=== PATIENT | male | born 1950 | race African-American/Black ===

== ENCOUNTER 2017-03-22 12:37 | Observation (INO) | payer MEDICARE, SELFPAY ==
[2017-03-22 13:32] LABS: PTT 30.5 SEC (22.9-36.1); Prothrombin Time 13.4 SEC (12.0-14.7)
[2017-03-22 13:34] LABS: #Eosinphils 0.2 thou/uL (0.0-0.7); #Lymphocytes 2.1 thou/uL (1.20-3.40); #Monocytes 0.6 thou/uL (0.11-0.59); #Neutrophils 3.4 thou/uL (1.40-6.50); %Basophils 0.6 % (0.0-1.0); %Eosinophils 2.6 % (0.0-10.0); %Lymphocytes 33.9 % (21.0-51.0); %Monocytes 9.6 % (0.0-10.0); Hematocrit 50.2 % (42.0-52.0); Red Blood Cell (RBC) Count 6.61 mill/uL (4.70-6.10); White Blood Cell (WBC) Count 6.3 thou/uL (4.8-10.8)
[2017-03-22] MEDS ORDERED: Nitroglycerin 2% Ointment 1 INCH/1 GM Packet ONE (13:36)
[2017-03-22 13:51] LABS: Troponin I 0.028 ng/mL (< 0.028)
[2017-03-22 13:53] LABS: ALT (SGPT) 26 U/L (8-55); AST (SGOT) 31 U/L (5-34); Alkaline Phosphatase 71 U/L (40-150); Anion Gap 11 mmol/L (10-20); BUN (Urea Nitrogen) 18 mg/dL (8.4-25.7); Bilirubin, Total 0.8 mg/dL (0.2-1.2); CK (CPK) 399 U/L (30-200); Calc. Creatinine Clearance 0 mL/min (70-130); Calcium 9.5 mg/dL (7.8-10.44); Carbon Dioxide 28 mmol/L (23-31); Chloride 104 mmol/L (98-107); Estimated GFR-MDRD 85; Globulin 3.8 g/dL (2.4-3.5); Lipase 16 U/L (8-78); Protein, Total 8.1 g/dL (5.8-8.1)
[2017-03-22 13:59] LABS: Anisocytosis SLIGHT = 6-15 cells (100X) (0-5/hpf); Elliptocytes SLIGHT = 2-5 cells (100X) (0-1/hpf); Hypochromia SLIGHT = 6-15 cells (100X) (0-5/hpf); Microcytosis SLIGHT = 6-15 cells (100X) (0-5/hpf); Ovalocytes SLIGHT = 2-5 cells (100X) (0-1/hpf); Target Cells SLIGHT = 2-5 cells (100X) (0-1/hpf)
[2017-03-22] MEDS ORDERED: hydrALAZINE 20 MG/ML VIAL ONE ×2 (14:02→15:17)
--- NOTE | 2017-03-22 14:52 | RAD ---
SINGLE VIEW OF THE CHEST: Date: 03-22-17 Comparison: 10-30-12 History: Headache for one week. Blurry vision. FINDINGS: Single view of the chest shows an enlarged cardiomediastinal silhouette. There is no evidence of cons olidation, mass, or pleural effusions. IMPRESSION: Cardiomegaly without evidence of acute cardiopulmonary disease. POS: [facility]
--- NOTE | 2017-03-22 15:02 | CT ---
CT BRAIN WITHOUT CONTRAST: Comparison: 10-10-11 History: Headache for one week and blurry vision. Technique: Multiple contiguous axial images were obtained in a CT of the brain without contrast. FINDINGS: There are scattered hypodensities in the subcortical and periventricular white matter, likely seconda ry to small vessel ischemic disease. A cavum septum pellucidum is incidentally seen. There is no evid ence of hydrocephalus, intracranial hemorrhage or extraaxial fluid collection. The calvarium and overlying soft tissues are unremarkable. The visualized paranasal sinuses and masto id air cells are well aerated. IMPRESSION: Small vessel ischemic disease without acute intracranial abnormality. POS: [facility]
[2017-03-22 15:11] LABS: Bilirubin Negative (Negative); Blood, Urine Negative (Negative); Glucose, Urine (Dipstick) Negative (Negative); Ketone, Urine Negative (Negative); Nitrite Positive (Negative); Protein, Urine (Dipstick) Negative (Neg-Trace)
[2017-03-22] MEDS ORDERED: Ketorolac Tromethamine 30 MG/ML VIAL ONE (15:16)
[2017-03-22] MEDS ORDERED: diphenhydrAMINE 50 MG/ML VIAL ONE (15:16)
[2017-03-22] MEDS ORDERED: Metoclopramide HCl 10 MG/2 ML VIAL ONE (15:17)
--- NOTE | 2017-03-22 15:17 | CT ---
CT ABDOMEN AND PELVIS WITH CONTRAST: Comparison: None. History: Severe abdominal pain. Technique: Multiple contiguous axial images were obtained in a CT of the abdomen and pelvis with cont rast. Coronal reformats were performed. FINDINGS: There is streak artifact limiting evaluation. The liver, gallbladder, adrenal glands, kidneys, spleen , and pancreas are unremarkable. No free air, free fluid, or stranding changes are seen in the abdome n or pelvis. There are few scattered diverticula in the colon. The small bowel is unremarkable. No abdominal or pe lvic lymphadenopathy are seen. Degenerative changes are seen in the spine. Visualized inferior thorax and abdominal wall soft tissue s are unremarkable. IMPRESSION: 1. No evidence of acute intraabdominal/pelvic abnormality. 2. Diverticulosis. POS: [facility]
[2017-03-22 15:22] LABS: Bacteria/HPF 4+ HPF (None Seen); Hyaline Casts/LPF 0-3 HYALINE CAST LPF (0-3 Hyaline); RBC/HPF 0-3 HPF (0-3); Squamous Epithelial None Seen HPF (0-3)
[2017-03-22] MEDS ORDERED: Labetalol HCl 100 MG/20 ML VIAL ONE (17:15)
[2017-03-22] MEDS ORDERED: cefTRIAXone\\ROCEPHIN 2 GM in Sodium Chloride 0.9% 100 ML IVPB ONE (17:15)
[2017-03-22] MEDS ORDERED: Sodium Chloride 0.9% 1,000 ML IV SCH (19:47)
[2017-03-22] MEDS ORDERED: Ondansetron HCl/PF 4 MG/2 ML Vial IVP PRN (19:47)
[2017-03-22] MEDS ORDERED: Acetaminophen 325 MG TAB PO PRN ×2 (19:47→20:01)
[2017-03-22] MEDS ORDERED: Ondansetron ODT 4 MG TAB SL PRN (19:47)
[2017-03-22] MEDS ORDERED: Guaifenesin DM 100-10/5 ML UDCUP PO PRN (20:01)
[2017-03-22 20:04] LABS: Troponin I 0.033 ng/mL (< 0.028)
[2017-03-22] MEDS ORDERED: Dextrose 5% in Water 1,000 ML IV PRN (20:17)
[2017-03-22] MEDS ORDERED: Dextrose 50% Abboject 50 ML SYRINGE SLOW IVP PRN (20:17)
[2017-03-22] MEDS ORDERED: Insulin Regular 300 UNITS/3 ML VIAL SC PRN (20:17)
[2017-03-22] MEDS: Labetalol 100 MG TAB PO SCH (21:57)
[2017-03-22] MEDS: Lisinopril 20 MG TAB PO SCH (21:57)
--- NOTE | 2017-03-23 00:35 | HP ---
DATE OF ADMISSION: 03/22/2017 ADMITTING PHYSICIAN: Dr. Pantera Hamlin. PRIMARY CARE PHYSICIAN: Dr. Bullard. CHIEF COMPLAINT: Lower abdominal pain. HISTORY OF PRESENT ILLNESS: The patient is a 66-year-old gentleman with history of pulmonary hyperte nsion, diabetes, obesity, diastolic heart failure. The patient reports that at about 9:00 a.m. he be jonathon to experience lower abdominal to suprapubic pain. He reports that he ate breakfast about 8:00 a. m. which consist of eggs and sausage and bread product. At about 9:00 a.m. he began to experience th e sharp pain in the suprapubic area. He denies any exacerbating or relieving factors. At approximat kalli 11:00 a.m. he began to experience headaches. He reported to the emergency room for further evalu ation. He denies fevers, chills, injury trauma, nausea, vomiting, diarrhea. REVIEW OF SYSTEMS: The following complete review of systems was negative, unless otherwise mentioned in the HPI or below: Constitutional: Weight loss or gain, sense of well-being, ability to conduct usual activities, exerc ise tolerance. Skin/Breast: Rash, itching, changes in hair growth or loss, nail changes, breast lumps, tenderness, swelling, nipple discharge. Eyes: Vision, double vision, tearing, blind spots, pain. ENT/Mouth: Headaches (location, time of onset, duration, precipitating factors), vertigo, lightheade dness, injury. Vision, double vision, tearing, blind spots, pain, nose bleeding, colds, obstruction, discharge, dental difficulties, gingival bleeding, dentures, neck stiffness, pain, tenderness, masses in thyroid or other areas Cardiovascular: Precordial pain, substernal distress, palpitations, syncope, dyspnea on exertion, or thopnea, nocturnal paroxysmal dyspnea, edema, cyanosis, hypertension, heart murmurs, varicosities, ph lebitis, claudication. Respiratory: Pain, shortness of breath, wheezing, stridor, cough, hemoptysis, fever or night sweats Gastrointestinal: Poor appetite, dysphagia, indigestion, abdominal pain, heartburn, eructation, naus ea, vomiting, hematemesis, jaundice, constipation, or diarrhea, abnormal stools (flip-colored, tarry, bloody, greasy, foul smelling), flatulence, hemorrhoids, recent changes in bowel habits. Genitourinary: Urgency, frequency, dysuria, nocturia, hematuria, polyuria, oliguria, unusual (or nereyda nge in) color of urine, stones, hesitancy, change in size of stream, dribbling, acute retention or in continence, libido, potency. Musculoskeletal: Pain, swelling, redness or heat of muscles or joints, limitation, of motion, muscul ar weakness, atrophy, cramps. Neurologic/Psychiatric: Convulsions, paralyses, tremor, incoordination, parasthesias, difficulties w ith memory of speech, sensory or motor disturbances, or muscular coordination (ataxia, tremor), emoti onal problems, anxiety, depression, previous psychiatric care, unusual perceptions, hallucinations. Allergy/Immunologic: Skin rash, anemia, bleeding tendency, polydipsia, polyuria, intolerance to heat or cold. PAST MEDICAL HISTORY: Significant for coronary artery disease, hypertension, pulmonary artery hypert ension, ischemic brain disease, obesity, diabetes. SURGICAL HISTORY: Abdominal hernia repair, right shoulder surgery, appendectomy. PSYCHIATRIC HISTORY: None. SOCIAL HISTORY: Patient is a former tobacco user. Denies alcohol or drug use. HOME MEDICATIONS: [place] 10 mg q.4 as needed, carvedilol 6.25 mg dose unknown, hydralazine 25 mg t.i. d., Lasix 40 mg once a day. ALLERGIES: No known drug allergies. PHYSICAL EXAMINATION: VITAL SIGNS: Vital statistics shows temperature of 97.7, blood pressure 147/98, pulse 81, respiratio ns 19, satting 97% on 2 liters. GENERAL: He is in no acute distress, cooperative. HEENT: Normocephalic, atraumatic. NECK: Normal range of motion. Trachea midline. No meningeal signs. No cervical adenopathy. No te nderness. RESPIRATORY: No rhonchi, no wheezing. Clear to auscultation. CARDIOVASCULAR: Regular rate and rhythm. Normal S1, S2. ABDOMEN: Morbidly obese. Positive bowel sounds. Tenderness in left lower quadrant suprapubic area. No peritoneal signs, no rebound, no guarding. EXTREMITIES: No clubbing, cyanosis. There is 2-3+ edema, left greater than right. NEUROLOGIC: Alert and oriented x3, no focal deficits. SKIN: Warm, dry, normal in color, no rash. LABORATORY AND IMAGES: CT of the abdomen and pelvis showed no evidence of acute intra-abdominal or p elvic abnormality. There is diverticulosis present as well as degenerative changes in the spine. Ur inalysis yellow cloudy, large amount of leukocytes, positive nitrites, white blood cells greater than 50, bacteria 4+. CT of the brain show small vessel ischemic disease without acute intracranial abno rmality. Chest x-ray shows cardiomegaly without evidence of acute cardiopulmonary disease. CBC show s a white count of 6.3, hemoglobin 15.6, hematocrit 50.2, platelets 145. No bands. No left shift. Lipase 16, creatinine kinase 399. CMP shows sodium of 138, potassium 4.6, chloride 104, carbon dioxi de 28, BUN 18, creatinine 1.05, blood glucose 125, calcium 9.5, albumin 4.3, alkaline phosphatase 71, AST 31, ALT 26. Cardiac enzymes show CK-MB of 7.9, troponin I 0.028, PTT 30.5, INR 1.0. ASSESSMENT AND PLAN: 1. Urinary tract infection. 2. Hypertensive urgency. 3. Pulmonary arterial hypertension. 4. Diabetes type 2. PLAN: Patient will be admitted to observation without monitor. He will be treated with p.o. antibio tics. We will also place the patient on his home antihypertensive and diastolic heart failure medica tions. We will monitor his blood pressure and make alterations accordingly. He will be placed on sl iding scale insulin and Accu-Cheks q.a.c. and at bedtime regimen. We will also diurese the patient a nd monitor for signs of hypovolemia.
[2017-03-23 01:11] VITALS: BMI 42.0
[2017-03-23 03:19] VITALS: TEMP 97.7
[2017-03-23 05:58] LABS: Anion Gap 12 mmol/L (10-20); BUN (Urea Nitrogen) 17 mg/dL (8.4-25.7); Calc. Creatinine Clearance 145 mL/min (70-130); Calcium 9.4 mg/dL (7.8-10.44); Carbon Dioxide 23 mmol/L (23-31); Chloride 105 mmol/L (98-107); Estimated GFR-MDRD Greater than 90
[2017-03-23] MEDS ORDERED: Cipro 250 MG TAB PO SCH (06:00)
[2017-03-23 06:21] LABS: #Eosinphils 0.2 thou/uL (0.0-0.7); #Lymphocytes 2.3 thou/uL (1.20-3.40); #Monocytes 0.8 thou/uL (0.11-0.59); #Neutrophils 4.3 thou/uL (1.40-6.50); %Basophils 0.3 % (0.0-1.0); %Eosinophils 2.3 % (0.0-10.0); %Lymphocytes 30.3 % (21.0-51.0); %Monocytes 10.5 % (0.0-10.0); Hematocrit 49.9 % (42.0-52.0); Mean Platelet Volume 10.1 fL (7.4-10.4); Red Blood Cell (RBC) Count 6.58 mill/uL (4.70-6.10); White Blood Cell (WBC) Count 7.5 thou/uL (4.8-10.8)
[2017-03-23] MEDS ORDERED: Carvedilol 6.25 MG TAB PO SCH (08:00)
[2017-03-23] MEDS ORDERED: Aspirin 81 mg Enteric Coated Tablet PO SCH (09:00)
[2017-03-23] MEDS ORDERED: Furosemide 20 MG TAB PO SCH (09:00)
[2017-03-23] MEDS ORDERED: Enoxaparin Sodium 40 MG/0.4 ML SYRINGE SC SCH (09:00)
[2017-03-23] MEDS: Labetalol 100 MG TAB PO SCH (09:27)
[2017-03-23] MEDS: Lisinopril 20 MG TAB PO SCH (09:27)
[2017-03-23 09:31] VITALS: BP 123/66
--- NOTE | 2017-03-23 12:33 | DIS ---
DATE OF ADMISSION: 03/22/2017 DATE OF DISCHARGE: 03/23/2017 PRIMARY DISCHARGE DIAGNOSIS: Accelerated hypertension. SECONDARY DISCHARGE DIAGNOSIS: Urinary tract infection. HOSPITAL COURSE: The patient was admitted and treated with home medications. The patient's blood pr essure was reduced appropriately. The patient's symptoms improved including headache. The patient a lso was noted to have cystitis with suprapubic pain, the patient's symptoms improved with IV ceftriax one. The patient was also started on ciprofloxacin by mouth. The patient remained afebrile without leukocytosis during his hospital stay. Thus, he was deemed stable for discharge with a 5-day regimen of oral antibiotics. The patient was encouraged to avoid high salt and high fat foods, as well as t o avoid drinking caffeinated drinks. CONSULTATIONS: None. PROCEDURES: None. DISCHARGE DISPOSITION: To home. DISCHARGE ACTIVITY: As tolerated. DISCHARGE DIET: Heart healthy. No salt added. DISCHARGE MEDICATIONS: The patient is to resume his home medication per the medication reconciliatio n list. PHYSICAL EXAMINATION: GENERAL: The patient is in no acute distress, nontoxic. HEAD: Normocephalic, atraumatic. EYES: PERRL. Extraocular muscles intact. LUNGS: Clear to auscultation, no wheezing, no rhonchi. CARDIAC: Regular rate and rhythm, no murmurs, regurg, gallops. ABDOMEN: Obese, nontender, positive bowel sounds. EXTREMITIES: No clubbing, cyanosis. There is 2-3+ edema bilaterally. FOLLOWUP: The patient is to follow up with his PCP within 7-10 days. Instructed to follow up in the emergency department for any other untoward events.
== END 2017-03-23 11:13 | disposition home or self-care (01) ==
LOC: ERS 12:37 → 2SW 19:51
PROVIDERS: ADMIT Internal Medicine Addiction Medicine; ATTEND Internal Medicine Addiction Medicine
DX: I50.30 Unspecified diastolic (congestive) heart failure (principal); I11.0 Hypertensive heart disease with heart failure; N39.0 Urinary tract infection, site not specified; I27.0 Primary pulmonary hypertension; E11.9 Type 2 diabetes mellitus without complications; E66.9 Obesity, unspecified; R10.30 Lower abdominal pain, unspecified; I25.10 Atherosclerotic heart disease of native coronary artery without angina pectoris; Z68.41 Body mass index [BMI] 40.0-44.9, adult; Z79.899 Other long term (current) drug therapy; Z90.49 Acquired absence of other specified parts of digestive tract; Z98.890 Other specified postprocedural states; Z87.891 Personal history of nicotine dependence
CPT/HCPCS: 70450; 71010; 74177; 80048; 80053; 82550; 82553; 82962; 83690; 84484 ×2; 85025 ×2; 85610; 85730; 87077; 87086; 87186; 93005; 94760; 96361; 96365; 96375; 96376; 99285; G0378; 36415; 36416; 81003; 81015; J0360; J0696; J1200; J1650; J1885; J2765; J7050

== ENCOUNTER 2017-05-15 15:23 | Emergency (ER) | payer MEDICARE ==
[~2017-05-15 15:23] MED LIST: ISOVUE-370 76%-LOCM 1 ML ONE
[2017-05-15 16:19] LABS: Mean Corpuscular HGB CONC 31.3 g/dL (32.0-36.0); Mean Corpuscular Hemoglobin 23.2 pg (27.0-31.0); Mean Corpuscular Volume 74.3 fl (80.0-94.0); Mean Platelet Volume 9.7 fL (7.4-10.4); Platelet Count 154 thou/uL (130-400); Red Blood Cell (RBC) Count 6.47 mill/uL (4.70-6.10); White Blood Cell (WBC) Count 6.9 thou/uL (4.8-10.8)
--- NOTE | 2017-05-15 16:36 | RAD ---
CHEST ONE VIEW: History: 67-year-old male with nausea and vomiting and abdominal pain which began approximately 2 hours ago. Comparison: 03-22-17 FINDINGS: Heart size is within normal limits. Atherosclerotic ectatic changes of the aorta. Horizontal linear a nd parenchymal changes noted in both bases, overall stable from prior studies. No overt edema, conflu ent pneumonia, or other acute process. IMPRESSION: Stable horizontal linear and parenchymal changes in the bases. Atherosclerosis of the aorta with ecta lenny. No acute intrathoracic disease. POS: [facility]
[2017-05-15 16:40] LABS: #Basophils 0.1 thou/uL (0.0-0.2); #Eosinphils 0.1 thou/uL (0.0-0.7); #Lymphocytes 2.3 thou/uL (1.20-3.40); #Monocytes 0.7 thou/uL (0.11-0.59); #Neutrophils 3.6 thou/uL (1.40-6.50); %Basophils 1.1 % (0.0-1.0); %Eosinophils 2.1 % (0.0-10.0); %Lymphocytes 33.6 % (21.0-51.0); %Monocytes 10.4 % (0.0-10.0); %Neutrophils 52.8 % (42.0-75.0); Anisocytosis SLIGHT = 6-15 cells (100X) (0-5/hpf); Hypochromia SLIGHT = 6-15 cells (100X) (0-5/hpf); MDiff Complete? YES; Microcytosis SLIGHT = 6-15 cells (100X) (0-5/hpf); Ovalocytes SLIGHT = 2-5 cells (100X) (0-1/hpf); Target Cells SLIGHT = 2-5 cells (100X) (0-1/hpf)
[2017-05-15 16:42] LABS: Troponin I 0.037 ng/mL (< 0.028)
[2017-05-15 16:46] LABS: ALT (SGPT) 16 U/L (8-55); AST (SGOT) 21 U/L (5-34); Albumin 4.2 g/dL (3.4-4.8); Alkaline Phosphatase 70 U/L (40-150); Anion Gap 12 mmol/L (10-20); BUN (Urea Nitrogen) 18 mg/dL (8.4-25.7); Bilirubin, Total 0.7 mg/dL (0.2-1.2); CK (CPK) 447 U/L (30-200); Calc. Creatinine Clearance 0 mL/min (70-130); Calcium 9.2 mg/dL (7.8-10.44); Carbon Dioxide 28 mmol/L (23-31); Chloride 105 mmol/L (98-107); Estimated GFR-MDRD 65; Glucose 135 mg/dL (80-115); Potassium 4.3 mmol/L (3.5-5.1); Protein, Total 7.2 g/dL (5.8-8.1); Sodium 141 mmol/L (136-145)
[2017-05-15 19:28] LABS: Bilirubin Negative (Negative); Blood, Urine Negative (Negative); Clarity CLEAR (Clear); Glucose, Urine (Dipstick) Negative (Negative); Leukocyte Negative (Negative); Nitrite Negative (Negative); Protein, Urine (Dipstick) Negative (Neg-Trace); Specific Gravity, Urine 1.018 (1.002-1.036); pH, Urine 7.5 (5.0-9.0)
[2017-05-15] MEDS ORDERED: hydrALAZINE 20 MG/ML VIAL ONE (19:44)
--- NOTE | 2017-05-15 20:26 | CT ---
CT ABDOMEN AND PELVIS WITH CONTRAST: Technique: Multiple axial tomograms were obtained through the abdomen and pelvis with IV enhancement. History: Abdominal pain. Comparison: 03-22-17 FINDINGS: Lung bases are clear. The liver, spleen, and pancreas are unremarkable. Stomach and duodenum are unre markable. Adrenal glands and kidneys are unremarkable. No hydronephrosis. Small bowel loops appear normal. Appendix is not identified. The colon is unremarkable. Airway normal caliber. No adenopathy. Images through the pelvis unremarkable. Prostate normal sized. IMPRESSION: No evidence of acute process. POS: [facility]
== END 2017-05-15 20:48 | disposition home or self-care (01) ==
LOC: ERS 15:23
DX: R10.31 Right lower quadrant pain (principal); I10 Essential (primary) hypertension; I11.0 Hypertensive heart disease with heart failure; I50.9 Heart failure, unspecified; Z87.891 Personal history of nicotine dependence; Z79.899 Other long term (current) drug therapy; Z86.73 Personal history of transient ischemic attack (TIA), and cerebral infarction without residual deficits
CPT/HCPCS: 36415; 71045; 74177; 80053; 81003; 82550; 82553; 84484; 85025; 93005; 94760; 96372; 96374; 96375; J0360; J2270

== ENCOUNTER 2017-06-14 14:12 | Emergency (ER) | payer MEDICARE ==
[2017-06-14 15:15] LABS: #Basophils 0.1 thou/uL (0.0-0.2); #Eosinphils 0.1 thou/uL (0.0-0.7); #Lymphocytes 2.2 thou/uL (1.20-3.40); #Monocytes 1.3 thou/uL (0.11-0.59); #Neutrophils 5.4 thou/uL (1.40-6.50); %Lymphocytes 24.3 % (21.0-51.0); %Monocytes 14.1 % (0.0-10.0); %Neutrophils 59.6 % (42.0-75.0); Anisocytosis SLIGHT = 6-15 cells (100X) (0-5/hpf); Elliptocytes SLIGHT = 2-5 cells (100X) (0-1/hpf); Hemoglobin 15.6 g/dL (14.0-18.0); Hypochromia SLIGHT = 6-15 cells (100X) (0-5/hpf); Large Platelets SLIGHT; MDiff Complete? YES; Mean Corpuscular Hemoglobin 23.2 pg (27.0-31.0); Mean Corpuscular Volume 72.6 fl (80.0-94.0); Mean Platelet Volume 11.2 fL (7.4-10.4); Microcytosis SLIGHT = 6-15 cells (100X) (0-5/hpf); Ovalocytes SLIGHT = 2-5 cells (100X) (0-1/hpf); PLT Morphology Comment Appears Adequate; Platelet Count 165 thou/uL (130-400); Polychromasia SLIGHT = 2-3 cells (100X) (0-2/hpf); RBC Distribution Width 15.5 % (11.5-14.5); White Blood Cell (WBC) Count 9.1 thou/uL (4.8-10.8)
[2017-06-14 15:22] LABS: CKMB 6.1 ng/mL (0-6.6); Troponin I 0.025 ng/mL (< 0.028)
[2017-06-14 15:23] LABS: ALT (SGPT) 15 U/L (8-55); AST (SGOT) 20 U/L (5-34); Albumin 4.2 g/dL (3.4-4.8); Alkaline Phosphatase 74 U/L (40-150); Anion Gap 13 mmol/L (10-20); BUN (Urea Nitrogen) 18 mg/dL (8.4-25.7); Bilirubin, Total 0.9 mg/dL (0.2-1.2); CK (CPK) 434 U/L (30-200); Calc. Creatinine Clearance 0 mL/min (70-130); Calcium 9.7 mg/dL (7.8-10.44); Carbon Dioxide 25 mmol/L (23-31); Chloride 101 mmol/L (98-107); Estimated GFR-MDRD 90; Globulin 3.5 g/dL (2.4-3.5); Glucose 110 mg/dL (80-115); Potassium 3.9 mmol/L (3.5-5.1); Protein, Total 7.7 g/dL (5.8-8.1); Sodium 135 mmol/L (136-145)
--- NOTE | 2017-06-14 15:44 | RAD ---
PORTABLE CHEST ONE VIEW: Date: 06-14-17 Time: 2:59 p.m. History: Chest pain. FINDINGS/IMPRESSION: Comparison is made with exam of 05-15-17. The heart is enlarged. The aorta is tortuous. Chronic changes are again seen. No lobar consolidation, pneumothoraces, alana pulmonary edema or pleural effusions are identified. POS: [facility]
--- NOTE | 2017-06-14 15:54 | ULT ---
BILATERAL LOWER EXTREMITY VENOUS DUPLEX EXAM: 06/14/17 Deep veins of both lower extremities evaluated by ultrasound and doppler. Color doppler with spectral analysis and compression studies performed. INDICATIONS: Bilateral lower extremity pain and edema. Deep veins of both lower extremities show normal blood flow and compression. No evidence of DVT. IMPRESSION: No evidence of lower extremity DVT. POS: [facility]
[2017-06-14] MEDS ORDERED: HYDROcodone/Acetaminophen 5/325 mg Tablet ONE (17:09)
--- NOTE | 2017-06-17 15:57 | EKG ---
Test Reason : Blood Pressure : / mmHG Vent. Rate : 083 BPM Atrial Rate : 332 BPM P-R Int : 000 ms QRS Dur : 138 ms QT Int : 390 ms P-R-T Axes : 270 -68 079 degrees QTc Int : 458 ms Atrial flutter with 4:1 A-V conduction Right bundle branch block Left anterior fascicular block Bifascicular block Inferior infarct , age undetermined Cannot rule out Anterior infarct , age undetermined Abnormal ECG Confirmed by ROSALINE AU, SVEN ([id number]), film editor TAO TATUM ([id number]) on 06/17/2017 3:56:29 PM Referred By: Confirmed By:SVEN WAGGONER MD
== END 2017-06-14 17:17 | disposition home or self-care (01) ==
LOC: ERS 14:12
DX: R60.0 Localized edema (principal); I25.2 Old myocardial infarction; I11.0 Hypertensive heart disease with heart failure; I67.1 Cerebral aneurysm, nonruptured; I50.9 Heart failure, unspecified; Z87.891 Personal history of nicotine dependence; Z86.73 Personal history of transient ischemic attack (TIA), and cerebral infarction without residual deficits; Z79.899 Other long term (current) drug therapy
CPT/HCPCS: 36415; 71045; 80053; 82553; 83880; 84484; 85025; 93005; 93970

== ENCOUNTER 2024-03-17 18:52 | Inpatient (IN) | payer MEDICARE ==
[2024-03-17] MEDS ORDERED: Bisacodyl 5 MG TAB PO PRN (21:11)
[2024-03-17] MEDS ORDERED: Ondansetron ODT 4 MG TAB PO PRN (21:11)
[2024-03-17] MEDS ORDERED: Ondansetron PF 4 MG/2 ML Vial IVP PRN (21:11)
[2024-03-17] MEDS ORDERED: traMADol HCl 50 MG TAB PO PRN (21:11)
[2024-03-17] MEDS ORDERED: Acetaminophen 325 MG TAB PO PRN (21:11)
[2024-03-17] MEDS ORDERED: Dextrose 50% Abboject 50 ML SYRINGE SLOW IVP PRN (21:20)
[2024-03-17] MEDS ORDERED: Glucagon 1 MG/ML KIT IM PRN (21:20)
[2024-03-17] MEDS ORDERED: Dextrose 5% in Water 1,000 ML IV PRN (21:20)
[2024-03-17 21:27] VITALS: BMI 39.0
[2024-03-17] MEDS: methylPREDNISolone Sod Succ 40 MG VIAL IVP SCH (21:37)
[2024-03-17] MEDS: Doxycycline 100 MG in Sodium Chloride 0.9% 100 ML IVPB SCH (21:37)
[2024-03-17 22:09] LABS: Bacteria/HPF None Seen HPF (None Seen); Bilirubin Negative (Negative); Blood, Urine Negative (Negative); Clarity Clear (Clear); Glucose, Urine (Dipstick) Normal (Negative); Ketone, Urine Negative (Negative); Leukocyte Negative Leu/uL (Negative); Nitrite Negative (Negative); Protein, Urine (Dipstick) 100 mg/dL (Neg-Trace); RBC/HPF 0-3 HPF (0-3); Specific Gravity, Urine 1.006 (1.002-1.036); Squamous Epithelial None Seen HPF (0-3); Urobilinogen 3 mg/dL (Less than 2); WBC/HPF 0-3 HPF (0-3)
[2024-03-17 22:41] LABS: Magnesium 1.9 mg/dL (1.6-2.6)
[2024-03-17 23:45] LABS: Troponin I 0.059 ng/mL (< 0.028)
[2024-03-18] MEDS: Ipratropium/Albuterol 3 ML NEB NEB SCH (01:50)
[2024-03-18 05:06] LABS: Troponin I 0.051 ng/mL (< 0.028)
[2024-03-18] MEDS: Furosemide 40 MG (4 mL) VIAL SLOW IVP SCH (05:18)
[2024-03-18] MEDS: Cefepime 1 GM in Sodium Chloride 0.9% 100 ML IVPB SCH (09:16)
[2024-03-18] MEDS: Empagliflozin 10 MG TAB PO SCH (09:16)
[2024-03-18] MEDS: Amitriptyline HCl 25 MG TAB PO SCH (09:16)
[2024-03-18] MEDS: Ferrous Sulfate 325 MG TAB PO SCH (09:16)
[2024-03-18] MEDS: Famotidine 20 MG TAB PO SCH (09:16)
[2024-03-18] MEDS: Arformoterol 15 MCG/2 ML NEB NEB SCH (09:21)
[2024-03-18 10:26] LABS: #Basophils Less than 0.03 10x3/uL (0.0-0.2); #Eosinophils Less than 0.03 10x3/uL (0.0-0.7); %Lymphocytes 11.9 % (21.0-51.0); %Monocytes 5.4 % (0.0-10.0); %Neutrophils 82.5 % (42.0-75.0); Hematocrit 34.3 % (42.0-52.0); Hemoglobin 10.4 g/dL (14.0-18.0); Mean Corpuscular HGB CONC 30.3 g/dL (32.0-36.0); Mean Corpuscular Hemoglobin 22.2 pg (27.0-31.0); Mean Corpuscular Volume 73.3 fL (78.0-98.0); Platelet Count 343 10x3/uL (130-400); RBC Distribution Width 18.9 % (11.5-14.5); Red Blood Cell (RBC) Count 4.68 mill/uL (4.70-6.10)
[2024-03-18 10:41] LABS: Anion Gap 14 mmol/L (10-20); BUN (Urea Nitrogen) 31 mg/dL (8.4-25.7); Calc. Creatinine Clearance 83 mL/min (70-130); Calcium 8.7 mg/dL (7.8-10.44); Carbon Dioxide 27 mmol/L (23-31); Chloride 106 mmol/L (98-107); Estimated GFR 55; Glucose 194 mg/dL (83-110); Potassium 4.4 mmol/L (3.5-5.1); Sodium 143 mmol/L (136-145)
[2024-03-18] MEDS: Heparin 5,000 UNITS/ML VIAL SC SCH (11:06)
[2024-03-18 11:11] LABS: Anisocytosis MODERATE=16-30 cells HPF (0-5); Burr Cells MODERATE= 6-15 cells HPF (0-1); Elliptocytes MODERATE= 6-15 cells HPF (0-1); Hypochromia SLIGHT = 6-15 cells HPF (0-5); Microcytosis SLIGHT = 6-15 cells HPF (0-5); Ovalocytes SLIGHT = 2-5 cells HPF (0-1); Platelet Adequacy Comment Platelets Normal; Poikilocytosis MARKED = >30 cells HPF (0-5); Polychromasia SLIGHT = 2-3 cells HPF (0-2); Reflex for Review?? YES; Schistocytes MODERATE= 6-15 cells HPF (0-1); Target Cells SLIGHT = 2-5 cells HPF (0-1)
[2024-03-19] MEDS: HYDROcodone/Acetaminophen 10/325 mg Tablet PO PRN (08:58)
[2024-03-19 09:42] LABS: #Basophils Less than 0.03 10x3/uL (0.0-0.2); #Eosinophils Less than 0.03 10x3/uL (0.0-0.7); %Basophils 0.1 % (0.0-1.0); %Lymphocytes 7.1 % (21.0-51.0); %Monocytes 15.2 % (0.0-10.0); %Neutrophils 77.2 % (42.0-75.0); Hematocrit 34.4 % (42.0-52.0); Hemoglobin 10.6 g/dL (14.0-18.0); Mean Corpuscular HGB CONC 30.8 g/dL (32.0-36.0); Mean Corpuscular Hemoglobin 22.5 pg (27.0-31.0); Mean Corpuscular Volume 72.9 fL (78.0-98.0); Platelet Count 363 10x3/uL (130-400); Red Blood Cell (RBC) Count 4.72 mill/uL (4.70-6.10)
[2024-03-19 10:12] LABS: Anion Gap 14 mmol/L (10-20); BUN (Urea Nitrogen) 37 mg/dL (8.4-25.7); Calc. Creatinine Clearance 73 mL/min (70-130); Calcium 8.7 mg/dL (7.8-10.44); Carbon Dioxide 27 mmol/L (23-31); Chloride 104 mmol/L (98-107); Estimated GFR 47; Glucose 135 mg/dL (83-110); Potassium 4.3 mmol/L (3.5-5.1); Sodium 141 mmol/L (136-145)
[2024-03-19 10:14] LABS: Band 2 % (5-11); Elliptocytes MODERATE= 6-15 cells HPF (0-1); Large Platelets 12.7 % (0-5); Lymphocytes 4 % (21-51); Microcytosis SLIGHT = 6-15 cells HPF (0-5); Monocytes 12 % (0-10); Myelocyte 1 % (0-0); Neutrophil 80 % (42-75); Platelet Adequacy Comment Platelets Normal; Polychromasia SLIGHT = 2-3 cells HPF (0-2); Schistocytes MODERATE= 6-15 cells HPF (0-1)
[2024-03-20 05:38] LABS: Anion Gap 16 mmol/L (10-20); BUN (Urea Nitrogen) 41 mg/dL (8.4-25.7); Calc. Creatinine Clearance 68 mL/min (70-130); Carbon Dioxide 25 mmol/L (23-31); Chloride 104 mmol/L (98-107); Estimated GFR 43; Glucose 165 mg/dL (83-110); Magnesium 1.9 mg/dL (1.6-2.6); Potassium 4.7 mmol/L (3.5-5.1); Sodium 140 mmol/L (136-145)
[2024-03-20 05:46] LABS: #Basophils Less than 0.03 10x3/uL (0.0-0.2); #Eosinophils Less than 0.03 10x3/uL (0.0-0.7); %Basophils 0.1 % (0.0-1.0); %Lymphocytes 4.3 % (21.0-51.0); %Monocytes 9.9 % (0.0-10.0); %Neutrophils 85.3 % (42.0-75.0); Hematocrit 34.8 % (42.0-52.0); Hemoglobin 10.8 g/dL (14.0-18.0); Mean Corpuscular Hemoglobin 22.4 pg (27.0-31.0); Mean Corpuscular Volume 72.2 fL (78.0-98.0); Platelet Count 386 10x3/uL (130-400); RBC Distribution Width 19.3 % (11.5-14.5); Red Blood Cell (RBC) Count 4.82 mill/uL (4.70-6.10)
[2024-03-20 06:40] LABS: Elliptocytes MODERATE= 6-15 cells HPF (0-1); Microcytosis MODERATE=15-30 cells HPF (0-5); Platelet Adequacy Comment Platelets Decreased; Polychromasia SLIGHT = 2-3 cells HPF (0-2); Schistocytes SLIGHT = 2-5 cells HPF (0-1)
[2024-03-21 07:00] LABS: #Basophils Less than 0.03 10x3/uL (0.0-0.2); #Eosinophils Less than 0.03 10x3/uL (0.0-0.7); %Lymphocytes 6.3 % (21.0-51.0); %Monocytes 14.3 % (0.0-10.0); %Neutrophils 79.1 % (42.0-75.0); Hemoglobin 11.2 g/dL (14.0-18.0); Mean Corpuscular HGB CONC 31.1 g/dL (32.0-36.0); Mean Corpuscular Hemoglobin 22.6 pg (27.0-31.0); Mean Corpuscular Volume 72.7 fL (78.0-98.0); Platelet Count 358 10x3/uL (130-400); RBC Distribution Width 19.6 % (11.5-14.5); Red Blood Cell (RBC) Count 4.95 mill/uL (4.70-6.10)
[2024-03-21 07:09] LABS: Anion Gap 15 mmol/L (10-20); BUN (Urea Nitrogen) 50 mg/dL (8.4-25.7); Calc. Creatinine Clearance 72 mL/min (70-130); Calcium 9.5 mg/dL (7.8-10.44); Carbon Dioxide 25 mmol/L (23-31); Chloride 106 mmol/L (98-107); Estimated GFR 45; Glucose 136 mg/dL (83-110); Potassium 4.7 mmol/L (3.5-5.1); Sodium 141 mmol/L (136-145)
[2024-03-21] MEDS: Carvedilol 25 MG TAB PO SCH (09:50)
[2024-03-21] MEDS: Atorvastatin Calcium 40 MG TAB PO SCH (09:56)
[2024-03-21] MEDS: Milrinone Lactate/D5W 20 MG in Premix 1 BAG IV SCH (18:10)
[2024-03-22 04:14] LABS: #Basophils Less than 0.03 10x3/uL (0.0-0.2); #Eosinophils Less than 0.03 10x3/uL (0.0-0.7); %Lymphocytes 7.7 % (21.0-51.0); %Monocytes 8.2 % (0.0-10.0); %Neutrophils 83.6 % (42.0-75.0); Hemoglobin 10.6 g/dL (14.0-18.0); Mean Corpuscular HGB CONC 31.2 g/dL (32.0-36.0); Mean Corpuscular Hemoglobin 22.3 pg (27.0-31.0); Mean Corpuscular Volume 71.4 fL (78.0-98.0); Platelet Count 334 10x3/uL (130-400); RBC Distribution Width 19.3 % (11.5-14.5); Red Blood Cell (RBC) Count 4.76 mill/uL (4.70-6.10)
[2024-03-22 04:24] LABS: Anion Gap 16 mmol/L (10-20); BUN (Urea Nitrogen) 52 mg/dL (8.4-25.7); Calc. Creatinine Clearance 72 mL/min (70-130); Calcium 8.9 mg/dL (7.8-10.44); Carbon Dioxide 25 mmol/L (23-31); Chloride 104 mmol/L (98-107); Estimated GFR 46; Glucose 158 mg/dL (83-110); Potassium 4.9 mmol/L (3.5-5.1); Sodium 140 mmol/L (136-145)
[2024-03-22 04:39] LABS: Anisocytosis MARKED = >30 cells HPF (0-5); Burr Cells SLIGHT = 2-5 cells HPF (0-1); Elliptocytes MODERATE= 6-15 cells HPF (0-1); Macrocytosis MODERATE=16-30 cells HPF (0-5); Ovalocytes SLIGHT = 2-5 cells HPF (0-1); Platelet Adequacy Comment Platelets Normal; Poikilocytosis SLIGHT = 6-15 cells HPF (0-5); Polychromasia SLIGHT = 2-3 cells HPF (0-2); Schistocytes SLIGHT = 2-5 cells HPF (0-1)
[2024-03-22] MEDS: Furosemide 20 MG TAB PO SCH (09:57)
[2024-03-22] MEDS: methylPREDNISolone Sod Succ 40 MG VIAL IVP SCH (12:27)
[2024-03-23 04:46] LABS: #Basophils Less than 0.03 10x3/uL (0.0-0.2); #Eosinophils Less than 0.03 10x3/uL (0.0-0.7); %Lymphocytes 11.7 % (21.0-51.0); %Monocytes 19.8 % (0.0-10.0); Hematocrit 31.5 % (42.0-52.0); Hemoglobin 9.9 g/dL (14.0-18.0); Mean Corpuscular HGB CONC 31.4 g/dL (32.0-36.0); Mean Corpuscular Hemoglobin 22.6 pg (27.0-31.0); Mean Corpuscular Volume 71.8 fL (78.0-98.0); Platelet Count 303 10x3/uL (130-400); RBC Distribution Width 19.2 % (11.5-14.5); Red Blood Cell (RBC) Count 4.39 mill/uL (4.70-6.10)
[2024-03-23 04:53] LABS: Anion Gap 14 mmol/L (10-20); BUN (Urea Nitrogen) 50 mg/dL (8.4-25.7); Calc. Creatinine Clearance 77 mL/min (70-130); Calcium 8.6 mg/dL (7.8-10.44); Carbon Dioxide 26 mmol/L (23-31); Chloride 104 mmol/L (98-107); Estimated GFR 49; Glucose 126 mg/dL (83-110); Potassium 4.7 mmol/L (3.5-5.1); Sodium 139 mmol/L (136-145)
[2024-03-23 05:24] LABS: Anisocytosis SLIGHT = 6-15 cells HPF (0-5); Elliptocytes MODERATE= 6-15 cells HPF (0-1); Hypochromia SLIGHT = 6-15 cells HPF (0-5); Microcytosis SLIGHT = 6-15 cells HPF (0-5); Platelet Adequacy Comment Platelets Normal; Poikilocytosis MARKED = >30 cells HPF (0-5); Polychromasia SLIGHT = 2-3 cells HPF (0-2); Schistocytes SLIGHT = 2-5 cells HPF (0-1); Tear Drops SLIGHT = 2-5 cells HPF (0-1)
[2024-03-23] MEDS: Furosemide 40 MG (4 mL) VIAL SLOW IVP SCH (08:57)
[2024-03-23] MEDS: methylPREDNISolone Sod Succ 40 MG VIAL IVP SCH (08:58)
[2024-03-23] MEDS: Bumetanide 1 MG/4 ML VIAL IVP SCH (21:00)
[2024-03-24 04:56] LABS: Anion Gap 16 mmol/L (10-20); BUN (Urea Nitrogen) 48 mg/dL (8.4-25.7); Calc. Creatinine Clearance 78 mL/min (70-130); Calcium 8.8 mg/dL (7.8-10.44); Carbon Dioxide 25 mmol/L (23-31); Chloride 104 mmol/L (98-107); Estimated GFR 50; Glucose 104 mg/dL (83-110); Potassium 4.5 mmol/L (3.5-5.1); Sodium 140 mmol/L (136-145)
[2024-03-24 05:10] LABS: Hematocrit 33.2 % (42.0-52.0); Hemoglobin 10.3 g/dL (14.0-18.0); Mean Corpuscular Hemoglobin 22.7 pg (27.0-31.0); Mean Corpuscular Volume 73.1 fL (78.0-98.0); Platelet Count 309 10x3/uL (130-400); RBC Distribution Width 19.5 % (11.5-14.5); Red Blood Cell (RBC) Count 4.54 mill/uL (4.70-6.10)
[2024-03-24] MEDS ORDERED: Furosemide 40 MG (4 mL) VIAL SLOW IVP SCH (06:00)
[2024-03-24] MEDS: Bumetanide 1 MG/4 ML VIAL IVP SCH ×3 (06:51→21:39)
[2024-03-24 07:09] LABS: Magnesium 2.1 mg/dL (1.6-2.6)
[2024-03-24 07:20] LABS: Anisocytosis MARKED = >30 cells HPF (0-5); Band 1 % (5-11); Elliptocytes MODERATE= 6-15 cells HPF (0-1); Hypochromia MODERATE=16-30 cells HPF (0-5); Lymphocytes 19 % (21-51); Macrocytosis MODERATE=16-30 cells HPF (0-5); Monocytes 12 % (0-10); Neutrophil 68 % (42-75); Platelet Adequacy Comment Platelets Normal; Poikilocytosis MODERATE=16-30 cells HPF (0-5); Polychromasia SLIGHT = 2-3 cells HPF (0-2); Schistocytes SLIGHT = 2-5 cells HPF (0-1)
[2024-03-25 04:45] LABS: #Basophils Less than 0.03 10x3/uL (0.0-0.2); #Eosinophils Less than 0.03 10x3/uL (0.0-0.7); %Eosinophils 0.1 % (0.0-10.0); %Lymphocytes 11.4 % (21.0-51.0); %Monocytes 18.1 % (0.0-10.0); %Neutrophils 70.2 % (42.0-75.0); Hematocrit 32.8 % (42.0-52.0); Hemoglobin 10.3 g/dL (14.0-18.0); Mean Corpuscular HGB CONC 31.4 g/dL (32.0-36.0); Mean Corpuscular Hemoglobin 22.4 pg (27.0-31.0); Mean Corpuscular Volume 71.3 fL (78.0-98.0); Platelet Count 287 10x3/uL (130-400); RBC Distribution Width 19.9 % (11.5-14.5)
[2024-03-25 05:05] LABS: Anion Gap 12 mmol/L (10-20); BUN (Urea Nitrogen) 43 mg/dL (8.4-25.7); Calc. Creatinine Clearance 82 mL/min (70-130); Calcium 8.4 mg/dL (7.8-10.44); Carbon Dioxide 35 mmol/L (23-31); Chloride 98 mmol/L (98-107); Estimated GFR 53; Glucose 94 mg/dL (83-110); Potassium 4.2 mmol/L (3.5-5.1); Sodium 141 mmol/L (136-145)
[2024-03-25 05:13] LABS: Anisocytosis SLIGHT = 6-15 cells HPF (0-5); Elliptocytes MODERATE= 6-15 cells HPF (0-1); Microcytosis SLIGHT = 6-15 cells HPF (0-5); Platelet Adequacy Comment Platelets Normal; Poikilocytosis SLIGHT = 6-15 cells HPF (0-5); Schistocytes SLIGHT = 2-5 cells HPF (0-1)
[2024-03-25] MEDS: Insulin Lispro 100 UNIT/ML 10 ML VIAL SC PRN (16:24)
[2024-03-25 16:49] VITALS: BMI 38.2
[2024-03-25] MEDS: Milrinone Lactate/D5W 20 MG in Premix 1 BAG IV SCH (19:49)
[2024-03-25] MEDS: Doxycycline 100 MG CAP PO SCH (20:46)
[2024-03-26 04:18] LABS: Anion Gap 13 mmol/L (10-20); BUN (Urea Nitrogen) 35 mg/dL (8.4-25.7); Calc. Creatinine Clearance 70 mL/min (70-130); Carbon Dioxide 37 mmol/L (23-31); Chloride 94 mmol/L (98-107); Estimated GFR 46; Glucose 115 mg/dL (83-110); Potassium 3.8 mmol/L (3.5-5.1); Sodium 140 mmol/L (136-145)
[2024-03-26 04:43] LABS: #Basophils Less than 0.03 10x3/uL (0.0-0.2); %Basophils 0.1 % (0.0-1.0); %Eosinophils 0.3 % (0.0-10.0); %Lymphocytes 14.1 % (21.0-51.0); %Monocytes 17.5 % (0.0-10.0); %Neutrophils 67.6 % (42.0-75.0); Hematocrit 34.9 % (42.0-52.0); Hemoglobin 10.8 g/dL (14.0-18.0); Mean Corpuscular HGB CONC 30.9 g/dL (32.0-36.0); Mean Corpuscular Hemoglobin 22.7 pg (27.0-31.0); Mean Corpuscular Volume 73.3 fL (78.0-98.0); Platelet Count 231 10x3/uL (130-400); RBC Distribution Width 19.9 % (11.5-14.5); Red Blood Cell (RBC) Count 4.76 mill/uL (4.70-6.10)
[2024-03-26] MEDS: predniSONE 20 MG TAB PO SCH (10:31)
[2024-03-26] MEDS: Insulin Lispro 100 UNIT/ML 10 ML VIAL SC PRN (21:24)
[2024-03-27] MEDS: Bumetanide 1 MG TAB PO SCH (06:32)
[2024-03-27 11:56] VITALS: BP 120/65; TEMP 97.6
[2024-03-27 12:13] LABS: #Basophils Less than 0.03 10x3/uL (0.0-0.2); %Basophils 0.1 % (0.0-1.0); %Eosinophils 0.4 % (0.0-10.0); %Lymphocytes 10.7 % (21.0-51.0); %Monocytes 14.9 % (0.0-10.0); %Neutrophils 73.6 % (42.0-75.0); Hematocrit 40.4 % (42.0-52.0); Hemoglobin 12.4 g/dL (14.0-18.0); Mean Corpuscular HGB CONC 30.7 g/dL (32.0-36.0); Mean Corpuscular Hemoglobin 22.6 pg (27.0-31.0); Mean Corpuscular Volume 73.6 fL (78.0-98.0); Platelet Count 218 10x3/uL (130-400); RBC Distribution Width 20.4 % (11.5-14.5); Red Blood Cell (RBC) Count 5.49 mill/uL (4.70-6.10)
[2024-03-27 12:26] LABS: Anion Gap 16 mmol/L (10-20); BUN (Urea Nitrogen) 32 mg/dL (8.4-25.7); Calc. Creatinine Clearance 65 mL/min (70-130); Calcium 9.7 mg/dL (7.8-10.44); Carbon Dioxide 34 mmol/L (23-31); Chloride 92 mmol/L (98-107); Estimated GFR 46; Glucose 112 mg/dL (83-110); Magnesium 1.8 mg/dL (1.6-2.6); Potassium 4.3 mmol/L (3.5-5.1); Sodium 138 mmol/L (136-145)
== END 2024-03-27 14:10 | disposition home or self-care (01) | DRG 280 ==
LOC: OBS 18:52 → OBSVTOIN 03-18 13:18 → PCU 03-21 18:04
PROVIDERS: ADMIT Internal Medicine; ATTEND Family Medicine
DX: I13.0 Hypertensive heart and chronic kidney disease with heart failure and stage 1 through stage 4 chronic kidney disease, or unspecified chronic kidney disease (principal); I50.33 Acute on chronic diastolic (congestive) heart failure; I21.A1 Myocardial infarction type 2; J96.01 Acute respiratory failure with hypoxia; J44.1 Chronic obstructive pulmonary disease with (acute) exacerbation; N17.9 Acute kidney failure, unspecified; F32.A Depression, unspecified; E78.5 Hyperlipidemia, unspecified; Z79.01 Long term (current) use of anticoagulants; Z79.899 Other long term (current) drug therapy; E66.01 Morbid (severe) obesity due to excess calories; Z68.35 Body mass index [BMI] 35.0-35.9, adult; N18.30 Chronic kidney disease, stage 3 unspecified; E11.22 Type 2 diabetes mellitus with diabetic chronic kidney disease
CPT/HCPCS: 36415; 36416; 71045; 71250; 74176; 80048; 80053; 81001; 83735; 83880; 84145; 84443; 84484; 85025; 85060; 87040; 87070; 87205; 93005; 93010; 93306; 93970; 94640; 96365; 96367; 96374; 96375; 96376; 97139; G0378; J0692; J1644; J1815; J1940; J2260; J2919; J3490; J7512; J7620

== ENCOUNTER 2024-03-29 10:49 | Emergency (ER) | payer MEDICARE ==
[2024-03-29] MEDS ORDERED: HYDROcodone/Acetaminophen 5/325 mg Tablet ONE (14:11)
== END 2024-03-29 14:18 | disposition home or self-care (01) ==
LOC: ERS 10:49
DX: S42.402A Unspecified fracture of lower end of left humerus, initial encounter for closed fracture (principal); I11.0 Hypertensive heart disease with heart failure; I50.9 Heart failure, unspecified; Z55.0 Illiteracy and low-level literacy; W18.11XA Fall from or off toilet without subsequent striking against object, initial encounter
CPT/HCPCS: 29105; 93005